=== PATIENT | female | born 1970 | race Caucasian/White ===

== ENCOUNTER 2025-01-23 11:11 | Emergency (ER) | payer OTHER ==
[~2025-01-23] VITALS: Ht 172.7 cm; Wt 76.0 kg
[2025-01-23 11:28] VITALS: BP 126/79
[2025-01-23 11:45] VITALS: BP 133/80
[2025-01-23 12:15] VITALS: BP 122/74
[2025-01-23 12:22] LABS: BASO% 0.3 % (0-3); EOS% 0.7 % (0-8); HEMATOCRIT 40.6 % (37.0-47.0); HEMOGLOBIN 13.1 g/dl (12.0-16.0); IMMATURE GRANULOCYTES 0.3 % (0.0-5.0); LYMPH% 15.1 % (15-41); MEAN CELL VOLUME 100.7 fL CALC (80.0-100.0); MEAN CORPUSCULAR HGB 32.5 pG CALC (26.0-32.0); MEAN CORPUSCULAR HGB CONC 32.3 g/dL CAL (32.0-36.0); MONO% 7.1 % (2-13); NEUT# 6.69 thou/uL (2.00-7.15); NEUT% 76.5 % (42-76); RED BLOOD COUNT 4.03 mill/uL (4.20-5.60); RED CELL DISTRI WIDTH 13.8 % (11.5-15.5)
[2025-01-23 12:36] LABS: ALBUMIN 4.4 g/dL (3.2-5.0); BILIRUBIN, TOTAL 0.6 mg/dL (0.02-1.3); CREATININE 0.7 mg/dL (0.5-1.0); POTASSIUM 4.2 mmol/l (3.5-5.1); TOTAL PROTEIN 7.7 g/dL (6.3-8.2)
[2025-01-23] MEDS ORDERED: AMOX/K CLAV875 M1 PO (12:42)
[2025-01-23 13:06] VITALS: BP 122/74
[2025-01-23] MEDS ORDERED: ONDANSETRON4 MG PO (13:06)
== END 2025-01-23 13:24 | disposition home or self-care (01) | DRG 153 ==
LOC: ED 11:11
PROVIDERS: Family Medicine
DX: J32.8 Other chronic sinusitis (principal); F17.200 Nicotine dependence, unspecified, uncomplicated